=== PATIENT | female | born 1995 | race Caucasian/White ===

== ENCOUNTER 2016-06-10 10:02 | Emergency (ER) | payer OTHER, SELFPAY | END 2016-06-10 12:10 | disposition home or self-care (01) | LOC: ER 10:02 | DX: K52.9 Noninfective gastroenteritis and colitis, unspecified (principal); K59.00 Constipation, unspecified; R31.9 Hematuria, unspecified | CPT/HCPCS: 36415; 96361; 96374; J1885 ==